=== PATIENT | female | born 1955 | race Caucasian/White ===

== ENCOUNTER → 2016-10-13 | Outpatient (CLI) | payer OTHER ==
[~2016-10-13] MED LIST: 3N1 COMMODE MC; AMLO-147 PO; ASPI-781 PO; CPM MC; GLYB5TAB3 PO; GUAI-95 PO; HYDR-3498 PO; LOSA100T7 PO; METF1000 PO; OSLT75C PO; PRAV40TA76 PO; TRAM50TA2 PO; WALK1EAC23 MC
--- NOTE | 2016-10-13 12:40 | RADRPT ---
PROCEDURE: Left knee radiographs. CLINICAL INDICATION: Left knee pain. Postop. TECHNIQUE: Three views. Weight bearing. Frontal, lateral, and patellar view. COMPARISON: 04/14/2016. FINDINGS: There is no fracture or dislocation. The soft tissues are normal. There is a total left knee arthroplasty which appears satisfactory. There is no lytic or blastic lesion. There is no joint effusion. IMPRESSION: 1. Satisfactory postoperative appearance of the left knee. RPTAT: QQ .Lorenzo Muñoz MD, Date Time Electronically viewed and signed by .Lorenzo Muñoz MD, on 10/13/2016 12:40 .R/
== END | disposition home or self-care (01) ==
LOC: HKI 10:25
PROVIDERS: ATTEND Orthopaedic Surgery
DX: Z47.1 Aftercare following joint replacement surgery (principal); Z96.652 Presence of left artificial knee joint; M25.562 Pain in left knee

== ENCOUNTER 2017-11-03 10:35 | Emergency (ER) | END 2017-11-03 13:28 | disposition home or self-care (01) ==

== ENCOUNTER 2018-02-01 09:37 | Emergency (ER) | END 2018-02-01 12:30 | disposition home or self-care (01) ==

== ENCOUNTER 2018-06-21 08:09 | Day surgery (SDC) | payer OTHER ==
[~2018-06-21] VITALS: Ht 180.3 cm; Wt 73.9 kg
[~2018-06-21 08:09] MED LIST changes: -HYDR-3498 PO; +HYDR-3601 PO; +LIDOCAINE 2% (SDV) 5 ML INJ ONE; +LOSA100T15 PO; -LOSA100T7 PO; -METF1000 PO; +METF100010 PO; +NAPR-985 PO; +OSEL75CA23 PO; -OSLT75C PO; +TRIA15CR55 TOP
[2018-06-21] MEDS ORDERED: pravastatin (08:31)
[2018-06-21] MEDS ORDERED: GLIPIZIDE (08:31)
[2018-06-21 08:43] VITALS: Ht 180.3 cm; Wt 73.9 kg
[2018-06-21 08:48] VITALS: BP 184/92; PULSE 77; RESP 16
--- NOTE | 2018-06-21 08:53 | PREAC ---
Date/Time of Note Date/Time of Note DATE: 06/21/18 TIME: 08:51 Anesthesia Eval and Record Evaluation Time Pre-Procedure Interview DATE: 06/21/18 TIME: 08:51 Age 63 Sex female NPO: 8 hrs Preoperative diagnosis screening Planned procedure colonoscopy/EGD Past Medical History Past Medical History: Includes Cardio: HTN Endo: Diabetes Surgery & Anesthesia Issues No known issue Meds Anticoagulation: No Beta Cecily within 24 hr: No Reason Beta Cecily not given: Pt. not on B-Cecily Active Scripts Naproxen* (Naprosyn*) 500 Mg Tablet, 500 MG PO BID PRN for PAIN AND/OR INFLAMMATION, #30 TAB Prov:PAUL ARAMBULA PA-C 02/01/18 Tramadol HCl (Tramadol HCl) 50 Mg Tablet, 50 MG PO Q6 PRN for PAIN, #7 TAB Prov:PAUL ARAMBULA PA-C 02/01/18 Triamcinolone Acetonide (Triamcinolone Acetonide) 0.1% - 15 Gm Cream.gm., 1 APPLIC TOP BID for 7 Days, #1 TUB 30G Prov:ALEE HAMMOND MD 11/03/17 Guaifenesin/Dextromethorphan (Diabetic Tussin DM*) 118 Ml Liquid, 10 ML PO Q4H PRN for COUGH, #1 BOTTLE Prov:SHEYLA MEDINA 06/17/16 Oseltamivir Phosphate* (Tamiflu*) 75 Mg Capsule, 75 MG PO BID for 5 Days, CAP Prov:SHEYLA MEDINA 06/17/16 Hydrocodone Bit-Acetaminophen (Hydrocodone Bit-APAP) 5-325MG Tablet, 1 TAB PO Q4H PRN for PAIN LEVEL 1-3 for 14 Days, #60 TAB Prov:AMBAR ALMEIDA 12/30/15 Aspirin* (Ecotrin*) 325 Mg Tabec, 325 MG PO BID, #90 Prov:DEANNA MOLINA MD 06/12/15 Front Wheel Walker* (Front Wheel Walker*) 1 Each Dme, 1 EACH MC DIRECTED, #1 DME 0 Refills Prov:AMBAR ALMEIDA 06/08/15 CPM: Continuous Passive Motion* (CPM*) 1 Each Dme, 1 EACH MC DIRECTED, #1 DME 0 Refills Prov:AMBAR ALMEIDA 06/08/15 3 N 1 Commode* (3 N 1 Commode*) 1 Each Dme, 1 EACH MC DIRECTED, #1 DME 0 Refills Prov:AMBAR ALMEIDA 06/08/15 Tramadol HCl (Tramadol HCl) 50 Mg Tablet, 50 MG PO Q6H PRN for PAIN, #120 TAB Prov:AMBAR ALMEIDA 06/08/15 Reported Medications [glibizide] No Conflict Check 06/21/18 [pravastatin] No Conflict Check 06/21/18 Metformin Hcl* (Metformin Hcl*) 1,000 Mg Tablet, 1000 MG PO BID, #30 TAB 06/08/15 Glyburide* (Glyburide*) 5 Mg Tablet, 5 MG PO DAILY, #30 TAB 06/08/15 Pravastatin Sodium* (Pravastatin Sodium*) 40 Mg Tablet, 40 MG PO HS, TAB 06/08/15 Amlodipine Besylate* (Amlodipine Besylate*) 10 Mg Tablet, 5 MG PO DAILY, #30 TAB 06/08/15 Losartan Potassium* (Losartan Potassium*) 100 Mg Tablet, 100 MG PO DAILY, TAB 06/08/15 Meds reviewed: Yes Allergies Coded Allergies: Penicillins (Verified Allergy, Unknown, 06/08/15) Allergies Reviewed: Yes Labs/Studies Labs Reviewed: Reviewed by anesthesiologist test: Negative Pre-procedure Exam Airway: Adequate mouth opening, Adequate thyromental dist Mallampati: Mallampati III Teeth: Normal Lung: Normal Heart: Normal ASA Physical Status ASA physical status: 3 Emergency: None Planned Anesthetic General/MAC: MAC Planned Pain Management Parenteral pain med Pre-operative Attestations Prior to commencing anesthesia and surgery, the patient was re-evaluated, there was verification of: *The patient's identity *The results of appropriate recent lab work and preoperative vital signs *The above evaluation not changing prior to induction *Anesthetic plan, risk benefits, alternative and complications discussed with patient/family; questions answered; patient/family understands, accepts and wishes to proceed. JAKUB CHRISTOPHER MD Jun 21, 2018 08:52
[2018-06-21] MEDS ORDERED: PROPOFOL 60 ML ONE (08:57)
[2018-06-21] MEDS ORDERED: hydrALAzine 20 MG INJ ONE (08:57)
== END 2018-06-21 12:32 | disposition home or self-care (01) ==
LOC: GIL 08:09
PROVIDERS: ATTEND Internal Medicine Gastroenterology
DX: R19.5 Other fecal abnormalities (principal); K29.50 Unspecified chronic gastritis without bleeding; K64.1 Second degree hemorrhoids; I10 Essential (primary) hypertension; E11.9 Type 2 diabetes mellitus without complications
CPT/HCPCS: 43239; 45378; 82962; 88305; 88312; 88313; Z7610; J0360